=== PATIENT | female | born 1990 | race Caucasian/White ===

== ENCOUNTER 2016-11-07 15:31 | Emergency (ER) | payer OTHER ==
[~2016-11-07 15:31] MED LIST: COLACE 100MG C100 MG PO; IBUPROFEN600 MG PO; NORCO 5-325 TA1 EACH PO
== END 2016-11-07 16:34 | disposition home or self-care (01) ==
LOC: ER1 15:31
DX: S82.402A Unspecified fracture of shaft of left fibula, initial encounter for closed fracture (principal); I10 Essential (primary) hypertension; V89.0XXA Person injured in unspecified motor-vehicle accident, nontraffic, initial encounter; S00.81XA Abrasion of other part of head, initial encounter; S80.212A Abrasion, left knee, initial encounter
CPT/HCPCS: 99283

== ENCOUNTER → 2021-07-31 | Outpatient (CLI) | payer OTHER ==
[~2021-07-31] MED LIST changes: +AUGMENTIN 875-1 EACH PO; +PROTONIX40 MG PO; +VISTARIL25 MG PO; +ZOFRAN4 MG PO
[2021-07-31 10:05] LABS: HEMOGLOBIN 13.2 gm/dl (12.3-15.3); RED BLOOD COUNT 4.97 M/UL (4.00-5.10); WHITE BLOOD COUNT 5.1 K/UL (4.5-11.0)
[2021-08-01 07:12] LABS: A/G RATIO 1.8 (1.2-2.2); ALKALINE PHOSPHATASE, S 70 IU/L (44-121); ALT (SGPT) 8 IU/L (0-32); AST (SGOT) 15 IU/L (0-40); BILIRUBIN, TOTAL 0.6 mg/dL (0.0-1.2); BUN 8 mg/dL (6-20); BUN/CREATININE RATIO 11 (9-23); CALCIUM, SERUM 9.3 mg/dL (8.7-10.2); CARBON DIOXIDE, TOTAL 21 mmol/L (20-29); CHLORIDE, SERUM 104 mmol/L (96-106); CHOLESTEROL, TOTAL 156 mg/dL (100-199); CREATININE, SERUM 0.76 mg/dL (0.57-1.00); EGFR IF AFRICN AM 121 (>59); EGFR IF NONAFRICN AM 105 (>59); GLOBULIN, TOTAL 2.7 g/dL (1.5-4.5); GLUCOSE, SERUM 103 mg/dL (65-99); HDL CHOLESTEROL 51 mg/dL (>39); LDL CHOLESTEROL CALC 88 mg/dL (0-99); LDL/HDL RATIO 1.7 ratio (0.0-3.2); POTASSIUM, SERUM 4.2 mmol/L (3.5-5.2); PROTEIN, TOTAL, SERUM 7.5 g/dL (6.0-8.5); SODIUM, SERUM 140 mmol/L (134-144); T. CHOL/HDL RATIO 3.1 ratio (0.0-4.4); TRIGLYCERIDES 92 mg/dL (0-149)
[2021-08-01 09:16] LABS: VITAMIN D, 25-HYDROXY 22.3 ng/mL (30.0-100.0)
[2021-08-02 07:38] LABS: HEMOGLOBIN A1C 5.4
[2021-08-02 07:39] LABS: ESTIM. AVG GLU (EAG) 108 mg/dL
== END ==
LOC: US 09:04 → KOH-I 08-01 10:30
PROVIDERS: Nurse Practitioner Family
DX: R10.811 Right upper quadrant abdominal tenderness (principal); R10.9 Unspecified abdominal pain; R10.11 Right upper quadrant pain; R73.9 Hyperglycemia, unspecified
CPT/HCPCS: 36415; 76705; 80053; 80061; 82607; 83036; 84439; 84443; 85025